=== PATIENT | male | born 1990 | race Caucasian/White ===

== ENCOUNTER 2022-05-16 07:43 | Emergency (ER) | payer OTHER, SELFPAY ==
--- NOTE | ~2022-05-16 | CT_ITS ---
EXAMINATION: CT ABDOMEN AND PELVIS WITHOUT CONTRAST CLINICAL INFORMATION: Left flank pain COMPARISON: Abdominal ultrasound 03/03/2017 TECHNIQUE: Multidetector volumetric imaging was performed from the superior aspect of the liver through the pubic symphysis. Sagittal and coronal reformatted images were obtained on the technologist's workstation. This CT examination was performed using dose optimization techniques as appropriate, variously including the following: *Automated exposure control *Adjustment of mA and/or kV according to patient size (this includes techniques or standardized protocols for targeted exams where dose is matched to indication/reason for exam; i.e. extremities or head) *Use of iterative reconstruction technique DLP: 1282 mGy-cm FINDINGS: Visualized lung bases are well aerated. The liver is normal in size but demonstrates diffusely decreased attenuation. The gallbladder is normal in appearance. The pancreas, spleen and adrenal glands are unremarkable. Symmetrically sized kidneys. There is mild fullness of the left-sided collecting system likely secondary to a 2 mm calculus within the left ureterovesical junction or possibly recently passed into the bladder. Normal caliber loops of small and large bowel. Normal appendix. Normal caliber abdominal aorta. No retroperitoneal lymphadenopathy. The bladder is relatively decompressed. The prostate gland is normal in size. No gross free pelvic fluid. No inguinal lymphadenopathy. Mild to moderate degenerative changes of the spine. CT/CT abdomen pelvis wo IV con IMPRESSION: 1. Mild fullness of the left-sided collecting system likely secondary to a 2 mm calculus within the left ureterovesical junction or possibly recently passed into the bladder. 2. Diffusely decreased liver attenuation suggesting hepatic steatosis. Correlation with liver enzymes recommended. Fleischner guidelines were followed.
[2022-05-16 08:05] VITALS: BP 184/95; PULSE 79; RESP 18; TEMP 36.4; O2SAT 96; BMI 51.5
[2022-05-16 08:19] LABS: MANUAL DIFF FLAG NO
[2022-05-16 08:22] LABS: Basophils Absolute Auto 0.1 X10*3/uL (0.0-0.2); Basophils Percent Auto 0.5 % (0-2); Eosinophils Absolute Auto 0.2 X10*3/uL (0.0-0.4); Eosinophils Percent Auto 2.1 % (0-4); Hematocrit 43.1 % (42.0-52.0); Hemoglobin 14.6 g/dl (14.0-18.0); Imm Gran Abs Auto 0.05 X10*3/uL (0.00-0.03); Imm Gran Pct Auto 0.5 % (0.0-0.4); Lymphocytes Absolute Auto 3.1 X10*3/uL (1.2-4.9); Lymphocytes Percent Auto 31.6 % (20-40); Mean Corpuscular HGB Conc 33.9 g/dl (31.0-36.0); Mean Corpuscular Hemoglobin 29.6 pg (27.0-33.0); Mean Corpuscular Volume 87.2 fL (80.0-98.0); Monocytes Absolute Auto 0.8 X10*3/uL (0.1-1.2); Monocytes Percent Auto 7.8 % (2-11); Neutrophils Absolute Auto 5.6 x10*3/uL (2.0-8.3); Neutrophils Percent Auto 57.5 % (45-73); Platelet Count 274 X10*3/uL (160-400); Red Blood Count 4.94 X10*6/uL (4.60-5.80); Red Cell Distribution Width 12.8 % (11.0-16.0); White Blood Count 9.7 X10*3/uL (4.8-10.8)
[2022-05-16 08:35] LABS: Anion Gap 11 (12-20); Blood Urea Nitrogen 17 mg/dL (9-16); Calcium 9.9 mg/dL (8.4-10.2); Carbon Dioxide 30 mmol/L (22-29); Chloride 107 mmol/L (96-108); Estimated Glomerular Filt Rate > 60; Glucose Random 113 mg/dL (60-115); Potassium 4.2 mmol/L (3.3-5.1); Sodium 144 mmol/L (135-145)
[2022-05-16 08:41] LABS: Appearance Urine Clear; Color Urine Yellow; Glucose Urine UA Negative (Negative); Leukocyte Esterase Urine Negative (Negative); Nitrite Urine Negative (Negative); PH 5.5 (5.0-9.0); Specific Gravity - Urine 1.025 (1.005-1.025); UMIC TRIGGER UACC YES; Urine Blood Small (1+) (Negative); Urine Ketones Negative (Negative); Urine Protein 100 (2+) mg/dL (Neg-Trace)
[2022-05-16 08:53] LABS: Bacteria Urine None Seen (None Seen); Hyaline Casts Urine 0-2 /LPF (0-2); Squamous Epithelial Cell Urine 0-2 /HPF (0-2); WBC Urine 0-5 /HPF (0-5)
[2022-05-16 10:43] VITALS: BP 159/99; PULSE 74; RESP 18; O2SAT 97
--- NOTE | 2022-05-16 11:04 | ED_ITS ---
HPI - Male Genitourinary General Chief complaint: Urogenital-Male Stated complaint: pain in side traveling down/burn when urinating Time Seen by Provider: 05/16/22 14:46 Source: patient and RN notes reviewed Mode of arrival: ambulatory Limitations: no limitations History of Present Illness HPI Narrative: 32-year-old male past medical history is 2 for obesity presents for evaluation of left lower abdominal pain. The patient started yesterday. At worst is 10 in 10, stabbing achy. The pain radiates down towards his groin. He has burning after urination He denies having seen any blood in urine. He has some mild pain radiating to his left flank. Denies any history of kidney stones Some mild nausea when his pain is been no vomiting or diarrhea Denies any fevers, chills Related Data Previous Rx's Medication Instructions Recorded tamsulosin 0.4 mg capsule (Flomax) 0.4 mg PO DAILY #7 caps 05/16/22 tramadol 50 mg tablet 50 mg PO TID PRN pain #10 tabs 05/16/22 Allergies Allergy/AdvReac Type Severity Reaction Status Date / Time No Known Allergies Allergy Verified 05/16/22 08:04 Review of Systems Constitutional: Constitutional: Reports as per HPI, Denies chills and Denies fatigue Cardiovascular: Cardiovascular: Denies chest pain and Denies dyspnea Respiratory: Respiratory: Denies cough and Denies dyspnea Gastrointestinal: Gastrointestinal: Denies constipation and Denies vomiting Genitourinary: Genitourinary: Denies difficulty urinating Endocrine: Endocrine: Denies fatigue [facility] Social History Social History Alcohol intake: never Smoked in Last 30 Days: Yes Use of substances other than those prescribed or required for medical reasons: No Advance Directives: No Physical Exam Vital Signs: Vital Signs: Last Vital Signs Temp 97.6 F 05/16/22 08:05 Pulse 74 05/16/22 10:43 Resp 18 05/16/22 10:43 BP 159/99 H 05/16/22 10:43 Pulse Ox 97 05/16/22 10:43 O2 Del Method 05/16/22 10:43 BMI result Body Mass Index 51.5 Const: General: cooperative, healthy appearing, comfortable, no acute distress and well developed Orientation/consciousness: patient oriented x3 Limitations: no limitations Resp: Effort & Inspection: able to speak in complete sentences Auscultation: clear to auscultation bilaterally Cardio: Rate: regular rate Rhythm: regular rhythm GI: Inspection: Yes normal to inspection, No abdominal wall ecchymosis, No Abdominal wall edema and No distended Palpation (GI): Soft to palpation, not firm, Tenderness to palpation present (GI) in the LLQ; with no rebound tenderness and Rovsing's sign negative and no guarding Auscultation: normal bowel sounds : General: Yes no CVA tenderness Back/Spine/Pelvis: Back: no CVA tenderness Skin: General skin exam: no rashes or lesions noted Neuro: General: patient oriented x3 Extrem: Other: Moving all extremities well Psych: Appearance: grossly normal and well kempt Mental Status: mental status grossly normal Affect: normal affect Course Course Course Narrative: RME- 32-year-old male presents for evaluation of left flank pain and burning with urination. Noted to have hematuria. Labs and urine were resulted significant for the hematuria. Kidney functions normal limits. The patient still uncomfortable, he was medicated with Toradol IM. I added on the CT scan of the abdomen pelvis to evaluate for obstructive uropathy Medications Administered Discontinued Medications Generic Name Dose Route Start Last Admin Trade Name Freq PRN Reason Stop Dose Admin Ketorolac Tromethamine 30 mg 05/16/22 11:01 05/16/22 11:07 Ketorolac Tromethamine 30 Mg/Ml Vial IM 05/16/22 11:02 30 mg ONCE ONE Administration Medical Decision Making Medical Decision Making [facility] Narrative: 32-year-old male presents for evaluation of left flank pain radiating to his left groin with some burning with urination. He had labs ordered which reviewed without significant abnormality, renal function within normal limits, no leukocytosis to suggest infection. Patient's UA has blood without infection. I had seen the patient really notice CT scan of the abdomen pelvis which showed 2 mm left distal UVJ stone or recently passed stone. The patient was medicated with Toradol and his symptoms resolved. All this information was discussed with the patient. He will be discharged with tramadol for breakthrough pain, Flomax will follow-up his PCP. Differential Diagnosis Obstructive uropathy Kidney stone Cystitis UTI Tylenol. Abdominal AA history Lab Data 05/16/22 08:12 05/16/22 08:12 Labs: Lab Results 05/16/22 05/16/22 05/16/22 Range/Units 08:12 08:12 08:28 WBC 9.7 (4.8-10.8) X10*3/uL RBC 4.94 (4.60-5.80) X10*6/uL Hgb 14.6 (14.0-18.0) g/dl Hct 43.1 (42.0-52.0) % MCV 87.2 (80.0-98.0) fL MCH 29.6 (27.0-33.0) pg MCHC 33.9 (31.0-36.0) g/dl RDW 12.8 (11.0-16.0) % Plt Count 274 (160-400) X10*3/uL MPV 9.0 L (9.4-12.4) fL Immature Gran % (Auto) 0.5 H (0.0-0.4) % Neut % (Auto) 57.5 (45-73) % Lymph % (Auto) 31.6 (20-40) % Hendricks % (Auto) 7.8 (2-11) % Eos % (Auto) 2.1 (0-4) % Baso % (Auto) 0.5 (0-2) % Lymph # (Auto) 3.1 (1.2-4.9) X10*3/uL Hendricks # (Auto) 0.8 (0.1-1.2) X10*3/uL Eos # (Auto) 0.2 (0.0-0.4) X10*3/uL Baso # (Auto) 0.1 (0.0-0.2) X10*3/uL Abs Immat Gran (auto) 0.05 H (0.00-0.03) X10*3/uL Absolute Neuts (auto) 5.6 (2.0-8.3) x10*3/uL Absolute Nucleated RBC 0.000 (0.0-0.012) X10*3/uL Nucleated RBC % (auto) 0.0 (0.0-0.2) /100WBC Sodium 144 (135-145) mmol/L Potassium 4.2 (3.3-5.1) mmol/L Chloride 107 (96-108) mmol/L Carbon Dioxide 30 H (22-29) mmol/L Anion Gap 11 L (12-20) BUN 17 H (9-16) mg/dL Creatinine 1.12 (0.5-1.4) mg/dL Estim Creat Clear Calc 149.0 Estimated GFR > 60 Random Glucose 113 (60-115) mg/dL Calcium 9.9 (8.4-10.2) mg/dL Urine Color Yellow Urine Appearance Clear Urine pH 5.5 (5.0-9.0) Ur Specific [place] 1.025 (1.005-1.025) Urine Protein 100 (2+) H (Neg-Trace) mg/dL Urine Glucose (UA) Negative (Negative) mg/dL Urine Ketones Negative (Negative) mg/dL Urine Blood Small (1+) H (Negative) Urine Nitrite Negative (Negative) Ur Leukocyte Esterase Negative (Negative) Urine RBC 3-5 H (0-2) /HPF Urine WBC 0-5 (0-5) /HPF Ur Squamous Epith Cells 0-2 (0-2) /HPF Urine Bacteria None Seen (None Seen) Hyaline Casts 0-2 (0-2) /LPF Discharge Plan Discharge Clinical Impression: Kidney stone Patient Disposition: Home, Self-Care Instructions: Kidney Stones (ED) Additional Instructions: Your blood work was reassuring and within normal limits. Your urine sample was significant for blood only no infection. Your CT scan showed a small, 2 mm kidney stone that was almost passed at the junction of the ureter and bladder. Your symptoms should resolve shortly as you pass the stone. In the meantime he may use ibuprofen or Tylenol for any further pain and tramadol for breakthrough pain Take Flomax daily and severe pain resolves Prescriptions: New tamsulosin [Flomax] 0.4 mg capsule 0.4 mg PO DAILY Qty: 7 0RF tramadol 50 mg tablet 50 mg PO TID PRN (Reason: pain) Qty: 10 0RF Referrals: Ben Huang MD [Physician] - (left obstructive uropathy) Stand Alone Forms: Work/School Release
[2022-05-16] MEDS: Ketorolac Tromethamine 30 MG/ML VIAL IM (11:07)
[2022-05-16 14:44] VITALS: BP 171/97; PULSE 77; RESP 16; TEMP 36.1; O2SAT 99
== END 2022-05-16 14:59 | disposition home or self-care (01) ==
PROVIDERS: Emergency Provider Student in an Organized Health Care Education/Training Program; PCP Internal Medicine
DX: N20.0 Calculus of kidney (principal); Z79.899 Other long term (current) drug therapy
CPT/HCPCS: 36415; 74176; 80048; 81001; 85025; 96372; 99284; J1885

== ENCOUNTER 2023-03-21 08:11 | Outpatient (AMB) | payer MEDICAID, SELFPAY ==
[2023-03-21 08:22] VITALS: BP 140/86; PULSE 86; BMI 54.1
--- NOTE | 2023-03-21 08:22 | MHC.OFFVIS ---
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 Electric[employer] Required: No Accompanied by: Self / Same As Patient Allergies No Known Allergies Allergy (Verified 05/16/22 08:04) Medication List - Last Reconciled 03/21/23 by Eldon Parson MD No Known Home Meds HPI HPI Comments History of Present Illness Details Thank you for referring Ronaldo in cardiology consultation today for management of hypertension. he is a pleasant young man who last year was trying to quit marijuana and then got anxious and developed chest pressure. At that time was diagnosed with having elevated blood pressure was given a blood pressure machine. Since then he has been monitoring his blood pressure blood pressures been consistently elevated. More recently he was in the emergency room because of a kidney stone and he was also noted to have elevated blood pressure then he was advised to have cardiology consultation. Since last year he has not had any recurrent chest pain including with exertion. He is now more aware and concerned about his health and more recently he and his have been starting to modify the lifestyle. he has started watching salt in his diet but still has high salt diet. He is been trying to lose weight. He is currently not on any medications. Does get short of breath when he is exerting himself but denies any orthopnea, PND. He describes heavy snoring noted by his as well as having to knowledge at nighttime and frequent changing in position. He complains of significant daytime somnolence as well as fatigue. Denies any palpitations or lightheadedness or syncope. [facility] Medical History Morbid obesity HTN (hypertension) Family History Mother High blood pressure High cholesterol Father High blood pressure High cholesterol Social History Alcohol intake: current Alcohol intake frequency: holidays/special occasions only Patient Tobacco Use Status: Never used Tobacco Review of Systems Const Reports chills, Reports fatigue, Reports fever(s), Reports frequent falls, Reports weakness, Reports weight gain and Reports weight loss ENT Reports dizziness Card Reports chest pain, Reports leg edema, Reports lightheadedness, Reports palpitations, Reports dyspnea, Reports dyspnea on exertion and Reports orthopnea Resp Reports cough, Reports dyspnea and Reports dyspnea on exertion GI Reports bloating and Reports change in bowel habits Musc Reports muscle weakness, Reports numbness and Reports tingling Neuro Reports dizziness, Reports frequent falls, Reports numbness, Reports tingling and Reports weakness Endo Reports fatigue and Reports palpitations Physical Exam Vital Signs: Last Vital Signs Pulse 86 03/21/23 08:22 BP 140/86 H 03/21/23 08:22 BMI result Body Mass Index 54.1 Const General: cooperative, comfortable, no acute distress, well developed, alert and awake Nutritional Appearance: obese morbidly obese Orientation/consciousness: patient oriented x3 Limitations: no limitations HEENT Head: Yes normocephalic and Yes atraumatic Neck Neck: Yes trachea midline, Yes supple and Yes no JVD Resp Effort & Inspection: normal respiratory effort Auscultation: clear to auscultation bilaterally Cardio Jugular venous distension: no JVD Palpation: normal PMI Rate: regular rate Rhythm: regular rhythm Heart sounds: S1 normal heart sound present, S2 normal heart sound present, no click, no gallops, no murmurs and no rubs GI Inspection: Yes obesity Auscultation: normal bowel sounds Skin General skin exam: no rashes or lesions noted Neuro General: patient oriented x3 and no focal motor deficits Extrem General: Yes no clubbing, cyanosis or edema Office Procedures EKG Details: EKG shows normal sinus rhythm with normal EKG with normal axis and normal intervals [id number], Complete Assessment & Plan Assessment & Plan (1) HTN (hypertension): Code(s): I10 - Essential (primary) hypertension Plan: uncontrolled hypertension this young man most likely secondary to obstructive sleep apnea. This is most likely related to his body habitus. I had a very long discussion about pathophysiology of obstructive sleep apnea and secondary health effects. I would strongly suggest him to have home sleep study. He will look into it. Also discussed importance of controlling blood pressure as this can cause long-term vital organ damage and complications related to it. Shows understanding. I have made him more aware of salt intake advised to increase fluid intake. In the long run gradual and sustained aggressive weight loss program should be considered. He said he is trying consider bariatric surgery referral in the future if this process stalls. Meanwhile his blood pressure needs to be treated will start him on hydrochlorothiazide 25 mg daily. Advised to monitor blood pressure at home maintain a log and bring it to the next office with his blood pressure machine. Advise endocrine workup for secondary hypertension as well and follow-up lipid panel and basic metabolic profile in 1 week on hydrochlorothiazide. he is currently not having any chest pain including with exertion and does not require any further workup at this point time unless he has recurrent symptoms Will follow up in the clinic in 4 weeks time, sooner p.r.n.. Thank you for allowing me to partake in his care Orders: Orders Magnesium Today I10 - Essential (primary) hypertension Lipid Panel Today I10 - Essential (primary) hypertension, I25.10 - Atherosclerotic heart disease of [place] coronary artery without angina pectoris Metanephrines, Plasma Today I10 - Essential (primary) hypertension Aldost/Renin Today I10 - Essential (primary) hypertension Renin Today I10 - Essential (primary) hypertension CA echo transthoracic complete Today I10 - Essential (primary) hypertension Basic Metabolic Panel Today I10 - Essential (primary) hypertension Cortisol Random Today I10 - Essential (primary) hypertension Aldosterone Today I10 - Essential (primary) hypertension RT home sleep study Today R40.0 - Somnolence Medications: New hydrochlorothiazide 25 mg PO DAILY 30 tabs 5RF Coding Level of Care Code New Pt Level 4 (81481) Diagnoses HTN (hypertension) I10 CPT Codes EKG - CPT: 82206-[id number], Complete ([id number])
== END 2023-03-21 09:00 | disposition home or self-care (01) ==
PROVIDERS: PCP Emergency Medicine; Visit Provider Internal Medicine Cardiovascular Disease
DX: I10 Essential (primary) hypertension (principal)
CPT/HCPCS: 93010; 99204

== ENCOUNTER → 2023-03-21 08:11 | Outpatient (BNVA) | payer MEDICAID, SELFPAY | PROVIDERS: PCP Internal Medicine; Visit Provider Internal Medicine Cardiovascular Disease | DX: I10 Essential (primary) hypertension (principal) | CPT/HCPCS: 93005; 99202 ==

== ENCOUNTER → 2023-04-04 14:49 | Outpatient (REF) | payer MEDICAID, SELFPAY ==
--- NOTE | 2023-04-04 14:51 | CA_ITS ---
Transthoracic Echocardiogram Patient (Last, First, Middle): Ismael Magana, Gender: Male Date of : 1990 Age: 33 Procedure Date: 04/04/2023 Procedure Type: Transthoracic Echocardiogram Location: OP Height: 177.8 cm Weight: 168.74 kg BSA: 2.72 m2 Heart Rate: 90 bpm BP: 135 / 70 mmHg Creative Producer: ERIKA Referring MD: Eldon Parson MD Symptoms: I10 - Essential (primary) hypertension Study Quality: Fair ECG Rhythm: Sinus Conclusions: - The left ventricular systolic function is normal. The calculated ejection fraction is 56% by biplane method. - No obvious valvular pathology seen on this study. Findings Left Ventricle Normal left ventricular cavity size. There is normal left ventricular wall thickness. The left ventricular systolic function is normal. The calculated ejection fraction is 56% by biplane method. There is no evidence of regional wall motion abnormalities. Diastolic function is normal for age. Right Ventricle Normal right ventricular cavity size and systolic function. Atria Both atria are normal in size. Aortic Valve There is a normal trileaflet aortic valve. There is no aortic valve stenosis. There is no aortic valve regurgitation. Mitral Valve The mitral valve appears normal. There is no mitral valve regurgitation. There is no mitral valve stenosis. Pulmonic Valve The pulmonic valve is likely normal. Tricuspid Valve Normal tricuspid valve structure. There is trace tricuspid valve regurgitation. There is no evidence of pulmonary hypertension. Great Vessels The asc aorta is normal in size. Venous The inferior vena cava was not well visualized. Pericardium/Pleural There is no evidence of pericardial effusion. Prior Study Comparison No prior study available for comparison. Recommendations, Care & Conclusions No obvious valvular pathology seen on this study. Measurements 2D Linear Measurements IVSd: 0.93 0.6-0.9/0.6-1.0 cm LVIDd: 3.65 3.9-5.3/4.2-5.9 cm LVIDd Index: 1.34 2.4-3.2/2.2-3.1 cm/m2 LVIDs: 1.89 2.0-3.6 cm LVPWd: 0.95 0.7-1.1 cm LA Diam: 3.40 2.7-3.8/3.0-4.0 cm LAIDs Index: 1.25 1.5-2.3 cm/m2 LV Mass: 125.97 67-162/88-224 g LV Mass Index: 46.31 43-95/49-115 g/m2 LVOT Diam: 1.90 3.0+(-)1.3 cm 2D Systolic Function EF 4C: 62.20 >55% EF 2C: 50.80 >55% EF BiP: 56.30 >55% Mitral Valve MV Pk E: 1.21 MV PK A: 0.63 MV Decel Time: 184.00 E/A: 1.90 E'Lateral: 14.70 E'Medial: 10.90 E/E' Med: 11.10 E/E' Lat: 8.20 PHT: 54.00 MVA PHT: 4.07 Decel [place]: 6.57 Aortic Valve AoV Pk Prashant: 1.50 AoV Mn Prashant: 1.08 AoV VTI: 0.28 AoV Pk Grad: 9.00 Aov Mn Grad: 5.00 SHEILA Cont.VTI: 2.30 LVOT LVOT Pk Prashant: 1.37 LVOT Mn Prashant: 0.93 LVOT VTI: 0.22 LVOT Pk Grad: 8.00 LVOT Mn Grad: 4.00 LVOT Diam: 1.90 LVOT Area: 2.84 Diastolic Function MV Pk E: 1.21 MV Pk A: 0.63 E/A: 1.90 E'Medial: 10.90 E/E' Med: 11.10 E' Laterial: 14.70 E/E' Lat: 8.20 Right Ventricle TAPSE (mm): 23.90 TVS' Prashant: 13.80 Tricuspid Valve TR Pk Prashant: 2.01 TR Pk Grad: 16.00 Great Vessels Aorta Sinus of Valsalva: 3.40 2.0-3.5 cm Ao Asc: 2.70 2.1-3.4 cm Pulmonary Valve PV Pk Prashant: 1.25 Peak PV Grad: 6.00 Updated in Other Vendor System with Status of Final Arnie Frey MD electronically signed on 04/06/2023 12:38:16 PM with status of Final
== END ==
LOC: HO.CARD 14:49
PROVIDERS: Visit Provider Internal Medicine Cardiovascular Disease
DX: I10 Essential (primary) hypertension (principal)
CPT/HCPCS: 93306

== ENCOUNTER → 2023-04-04 14:51 | Outpatient (BNV) | payer MEDICAID, SELFPAY | PROVIDERS: Visit Provider Internal Medicine | DX: I10 Essential (primary) hypertension (principal) | CPT/HCPCS: 93306 ==

== ENCOUNTER → 2023-04-28 15:34 | Outpatient (REF) | payer MEDICAID, SELFPAY | LOC: HO.SL 15:34 | PROVIDERS: Visit Provider Internal Medicine Cardiovascular Disease | DX: G47.33 Obstructive sleep apnea (adult) (pediatric) (principal); G47.36 Sleep related hypoventilation in conditions classified elsewhere; R40.0 Somnolence; R06.83 Snoring | CPT/HCPCS: 95806 ==

== ENCOUNTER → 2023-04-28 15:47 | Outpatient (BNV) | payer MEDICAID, SELFPAY | PROVIDERS: Visit Provider Internal Medicine | DX: G47.33 Obstructive sleep apnea (adult) (pediatric) (principal) | CPT/HCPCS: 95806 ==

== ENCOUNTER 2023-05-12 10:57 | Outpatient (REF) | payer MEDICAID, SELFPAY ==
[2023-05-12 12:59] LABS: Anion Gap 12 (12-20); Blood Urea Nitrogen 12 mg/dL (9-16); Calcium 9.7 mg/dL (8.4-10.2); Carbon Dioxide 26 mmol/L (22-29); Chloride 107 mmol/L (96-108); Cholesterol 178 mg/dL (<200); Estimated Glomerular Filt Rate > 60; Glucose Random 97 mg/dL (60-115); HDL Cholesterol 37 mg/dL (>40); LDL Cholesterol Calculated 117 mg/dL (<100); Magnesium 2.1 mg/dL (1.6-2.6); Potassium 3.7 mmol/L (3.3-5.1); Sodium 141 mmol/L (135-145); Triglycerides 121 mg/dL (<150)
[2023-05-12 13:09] LABS: Cortisol Random 6.3 ug/dL
[2023-05-16 18:19] LABS: Metanephrine, Free 26 pg/mL (<=57); Normetanephrines, Free 113 pg/mL (<=148); Total Metanephrine, Free 139 pg/mL (<=205)
[2023-05-17 13:43] LABS: Renin 0.19 ng/mL/h (0.25-5.82)
[2023-05-17 15:18] LABS: Plasma Renin Activity 0.21 ng/mL/h (0.25-5.82)
== END 2023-05-12 10:58 | disposition home or self-care (01) ==
LOC: HO.LAB 10:57
PROVIDERS: Visit Provider Internal Medicine Cardiovascular Disease
DX: I10 Essential (primary) hypertension (principal); I25.10 Atherosclerotic heart disease of native coronary artery without angina pectoris
CPT/HCPCS: 36415; 80048; 80061; 82088; 82533; 83735; 83835; 84244

== ENCOUNTER 2023-05-16 15:12 | Outpatient (AMB) | payer MEDICAID, SELFPAY ==
--- NOTE | 2023-05-16 15:16 | A.OFFVIS_ITS ---
Intake Vital Signs 05/16/23 15:27 Height 5 ft 11 in Weight 397 lb 8 oz BMI 55.4 BP 142/80 H Blood Pressure Location Lt brachial Position Sitting Pulse 87 Pulse Source Pulse Oximeter Pulse Oximetry (%) 97 Oxygen Delivery Method Room Air Intake Visit Reasons: INP-MIKE Intake Note: Patient presents for MIKE. Snores, gasping for air while in a deep sleep. Allergies No Known Allergies Allergy (Verified 05/16/23 15:26) HPI HPI Comments History of Present Illness Details 33 y/o male patient presents for new in- person visit to manage sleep apnea. Pt reports he had a home sleep study done in 04/2023. The home sleep study result was significant for a severe degree of sleep apena. The total AHI was 83/hr, snoring for 25% of sleep time. There is also nocturnal hypoxemia with lowest O2 sat 76% and O2 sat below 88% for 26 min. Pt recently visit emergency room because of a kidney stone and he was also noted to have elevated blood pressure then he was advised to have cardiology consultation and underwent sleep study. He reports loud snoring, disrupted sleep, and his witnessed apnea spells and gasping. He gets tired easily and sleepy early evening. Pt denies difficulty falling asleep. [facility] Medical History Morbid obesity HTN (hypertension) Family History Mother High blood pressure High cholesterol Father High blood pressure High cholesterol Social History Alcohol intake: current Alcohol intake frequency: holidays/special occasions only Patient Tobacco Use Status: Never used Tobacco Review of Systems Const All systems reviewed & are unremarkable except as noted in HPI and below Physical Exam Vital Signs: Last Vital Signs Pulse 87 05/16/23 15:27 BP 142/80 H 05/16/23 15:27 Pulse Ox 97 05/16/23 15:27 Oxygen Delivery Method Room Air 05/16/23 15:27 BMI result Body Mass Index 55.4 Const General: cooperative and tired appearing Nutritional Appearance: obese Orientation/consciousness: patient oriented x3 Neck Neck: Yes full ROM and Yes supple Resp Effort & Inspection: normal respiratory effort and able to speak in complete sentences Neuro General: patient oriented x3 and gait normal Cranial nerves: Yes CN's II-XII intact bilaterally Cognition (Neuro): normal cognition Gait exam (Neuro): Normal gait present Motor exam (neuro): 5/5 motor strength present throughout Psych Appearance: grossly normal Mental Status: mental status grossly normal Speech and movement: Normal speech and movement present Affect: normal affect Attitude: cooperative Assessment & Plan Assessment & Plan (1) MIKE (obstructive sleep apnea): Comment: Severe degree of sleep apnea. The AHI was 83/hr, and oxygen sean was 76%. Code(s): G47.33 - Obstructive sleep apnea (adult) (pediatric) Plan Start APAP t [id number]. Stressed compliance, use CPAP nightly and more than 4 hrs. Wt reduction advised. Coding Level of Care Code New Pt Level 3 (67577) Diagnoses MIKE (obstructive sleep apnea) G47.33
[2023-05-16 15:27] VITALS: BP 142/80; PULSE 87; O2SAT 97; BMI 55.4
== END 2023-05-16 15:48 | disposition home or self-care (01) ==
LOC: HO.HSMS 15:12
PROVIDERS: Absent Provider Nurse Practitioner Family; PCP Emergency Medicine; Visit Provider Nurse Practitioner Family
DX: G47.33 Obstructive sleep apnea (adult) (pediatric) (principal)
CPT/HCPCS: 99203

== ENCOUNTER → 2023-05-16 15:12 | Outpatient (BNVA) | payer MEDICAID, SELFPAY | PROVIDERS: Absent Provider Nurse Practitioner Family; PCP Emergency Medicine; Visit Provider Nurse Practitioner Family | DX: G47.33 Obstructive sleep apnea (adult) (pediatric) (principal) | CPT/HCPCS: 99212 ==

== ENCOUNTER 2023-05-22 14:33 | Outpatient (AMB) | payer MEDICAID, SELFPAY ==
[2023-05-22 15:23] VITALS: BP 130/60; PULSE 88; BMI 53.7
--- NOTE | 2023-05-22 15:23 | A.OFFVIS_ITS ---
Intake Vital Signs 05/22/23 15:23 Height 5 ft 11 in Weight 385 lb 5.888 oz BMI 53.7 BP 130/60 Blood Pressure Location Lt brachial Position Sitting Pulse 88 Pulse Source Pulse Oximeter Intake Visit Reasons: f/u after testing [employer] Required: No Allergies No Known Allergies Allergy (Verified 05/22/23 15:25) Medication List - Last Reconciled 05/22/23 by Keren Hoover, [employer] hydrochlorothiazide 25 mg PO DAILY HPI f/u after testing HPI Details Ismael is a 33-year-old male past medical history of morbid obesity, hypertension who presents for follow-up after recent echocardiogram and sleep study. Today he reports he has been doing well since last visit. He has been working on good diet and weight loss. He checks his blood pressure at home but finds his readings to be very elevated. He believes his cuff may be inaccurate. He has been taking his hydrochlorothiazide daily. He did have his sleep study and did see the sleep medicine doctor in follow-up. He says he is waiting for his mask. No chest discomfort, shortness of breath, palpitations, lightheadedness, presyncope, syncope, PND, orthopnea or edema. He reports good activity tolerance and states he is very active throughout the day. [facility] Medical History Morbid obesity HTN (hypertension) Family History Mother High blood pressure High cholesterol Father High blood pressure High cholesterol Social History Alcohol intake: current Alcohol intake frequency: holidays/special occasions only Patient Tobacco Use Status: Never used Tobacco Review of Systems Const All systems reviewed & are unremarkable except as noted in HPI and below ENT Denies dizziness Card Denies chest pain, Denies chest pain at rest, Denies chest pain with activity, Denies rapid heart rate, Denies pedal edema, Denies edema, Denies leg edema, Denies lightheadedness, Denies palpitations, Denies dyspnea, Denies dyspnea on exertion and Denies orthopnea Resp Denies cough, Denies dyspnea and Denies dyspnea on exertion GI Denies hematochezia and Denies change in stool character Musc Denies abnormal gait, Denies limited range of motion, Denies muscle cramps, Denies muscle weakness, Denies numbness, Denies radiating pain into limb, Denies stiffness and Denies tingling Neuro Denies abnormal gait, Denies dizziness, Denies numbness and Denies tingling Endo Denies palpitations Physical Exam Vital Signs: Last Vital Signs Pulse 88 05/22/23 15:23 BP 130/60 05/22/23 15:23 BMI result Body Mass Index 53.7 Const Other: Morbidly obese General: cooperative, healthy appearing, comfortable and no acute distress Orientation/consciousness: patient oriented x3 Neck Neck: Yes normal visual inspection and Yes no JVD Resp Effort & Inspection: normal respiratory effort Auscultation: clear to auscultation bilaterally, no crackles, no rales, no rhonchi and no wheezes Cardio Jugular venous distension: no JVD Rate: regular rate Rhythm: regular rhythm Heart sounds: S1 normal heart sound present, S2 normal heart sound present, no murmurs and no rubs Neuro General: patient oriented x3 Extrem General: Yes normal to inspection, No no pedal edema and No calf tenderness Psych Appearance: grossly normal Mental Status: mental status grossly normal Speech and movement: Normal speech and movement present Assessment & Plan Assessment & Plan (1) HTN (hypertension): Code(s): I10 - Essential (primary) hypertension Plan: History of hypertension. Lab work done last visit to assess for secondary causes of hypertension without significant abnormalities. Echocardiogram done 04/04/2023 showed EF 56%, no valve abnormalities and no regional wall motion abnormalities. A sleep study was done on 05/06/2023 showing very very severe obstructive sleep apnea with nocturnal hypoxemia, lowest O2 saturation 76%. He has been seen by sleep medicine and is currently awaiting his CPAP mask. The importance of good mask compliance reviewed with him. This likely contributes to his hypertension. On last visit he was started on hydrochlorothiazide. Blood pressure is normal range today. Labs done 05/12/2023 showed potassium 3.7, creatinine 0.83. He is currently working on weight loss with diet control. The benefit of ongoing weight loss reviewed with him. Cardiology follow-up in 6 months, sooner if needed. (2) MIKE (obstructive sleep apnea): Comment: Severe degree of sleep apnea. The AHI was 83/hr, and oxygen sean was 76%. Code(s): G47.33 - Obstructive sleep apnea (adult) (pediatric) Plan: As above (3) Morbid obesity: Code(s): E66.01 - Morbid (severe) obesity due to excess calories Plan: As above Plan Time spent on chart review, documentation, interview and assessment Coding Level of Care Code Est Pt Level 3 (32726) Diagnoses HTN (hypertension) I10 MIKE (obstructive sleep apnea) G47.33 Morbid obesity E66.01 Time Spent (min) 24
== END 2023-05-22 15:56 | disposition home or self-care (01) ==
PROVIDERS: PCP Emergency Medicine; Visit Provider Nurse Practitioner Family
DX: I10 Essential (primary) hypertension (principal); G47.33 Obstructive sleep apnea (adult) (pediatric); E66.01 Morbid (severe) obesity due to excess calories
CPT/HCPCS: 99213

== ENCOUNTER → 2023-05-22 14:33 | Outpatient (BNVA) | payer MEDICAID, SELFPAY | PROVIDERS: Visit Provider Nurse Practitioner Family | DX: I10 Essential (primary) hypertension (principal); G47.33 Obstructive sleep apnea (adult) (pediatric); E66.01 Morbid (severe) obesity due to excess calories; Z68.43 Body mass index [BMI] 50.0-59.9, adult | CPT/HCPCS: 99212 ==